=== PATIENT | male | born 1960 | race African-American/Black ===

== ENCOUNTER 2016-05-03 00:27 | Emergency (ER) | payer SELFPAY ==
[2016-05-03 02:47] VITALS: BP 134/94
== END 2016-05-03 02:47 | disposition home or self-care (01) ==
LOC: ED 00:27
DX: R51 Headache (principal); E11.9 Type 2 diabetes mellitus without complications; M19.90 Unspecified osteoarthritis, unspecified site; Z79.84 Long term (current) use of oral hypoglycemic drugs